=== PATIENT | female | born 1930 ===

== ENCOUNTER 2016-07-29 13:22 | Inpatient (IN) | payer MEDICARE, MEDICAID ==
[~2016-07-29] VITALS: Ht 157.5 cm; Wt 67.0 kg
[2016-07-29 14:15] LABS: BASOPHILS 0.5 % (0-2); EOSINOPHILS 4.4 % (0-7); HEMATOCRIT 30.6 % (36.0-48.0); IMMATURE GRANULOCYTES 0.9 % (0-5); LYMPHOCYTES 23.5 % (15-50); MCH 30.7 pg (26.0-34.0); MCHC 32.7 g/dL (31.0-37.0); MCV 93.9 fL (80.0-100.0); MEAN PLATELET VOLUME 9.6 fL (7.4-10.4); MONOCYTES 7.8 % (2-11); NEUTROPHILS 62.9 % (40-80); PLATELET COUNT 266 10x3/uL (130-400); RBC 3.26 10x6/uL (4.00-5.40); RDW 15.1 % (11.5-14.5); WBC 12.6 10x3/uL (4.8-10.8)
[2016-07-29 14:28] LABS: ALKALINE PHOSPHATASE 88 U/L (46-116); ALT (SGPT) 28 U/L (10-68); BILIRUBIN - TOTAL 0.27 mg/dL (0.2-1.3); CALC OSMOLALITY 292 mosm/kg (275-300); CALCIUM 8.9 mg/dL (8.5-10.1); CARBON DIOXIDE 15.6 mmol/L (21.0-32.0); CHLORIDE - SERUM 102 mmol/L (98-107); CREATININE - SERUM 2.5 mg/dL (0.6-1.3); GLUCOSE 138 mg/dL (74-106); POTASSIUM - SERUM 4.6 mmol/L (3.5-5.1); PROTEIN - SERUM 7.4 g/dL (6.4-8.2); SODIUM 132 mmol/L (136-145); UREA NITROGEN 84 mg/dL (7-18); eGFR NON AFRICAN AMERICAN 19 mL/min (90-120)
[2016-07-29 14:44] LABS: CHOL - HDL RATIO 4.3 ratio (2.3-4.1); CHOLESTEROL, TOTAL 200 mg/dL (0-200); CKMB 3.4 U/L (0.0-3.6); CREATINE KINASE 49 UL (21-215); HDL CHOLESTEROL 47 mg/dL (32-96); LDL CHOLESTEROL 78 mg/dL (0-100); LDL-HDL RATIO 1.7 ratio (1.5-3.5); TRIGLYCERIDE 378 mg/dL (30-200)
[2016-07-29 14:49] LABS: TROPONIN-I 0.925 ng/mL (0.000-0.060)
--- NOTE | 2016-07-29 17:00 | NUR ---
RECEIVED PT TO ROOM 2115 VIA GURNEY FROM ER AAOX4 RESP UNLABORED O2 ON 2LPM NC TELEMETRY APPLIED SR RATE 87 NS PATENT TO RAC PER PUMP AT 100ML/HR WITHOUT DIFFICULTY
[2016-07-29] MEDS ORDERED: CATAPRES TTS-10.1 MG TD (18:10)
[2016-07-29] MEDS ORDERED: ISOSORBIDE MONO30 M1 PO (18:10)
[2016-07-29] MEDS ORDERED: BUPROPION XL300 MG PO (18:11)
[2016-07-29] MEDS ORDERED: NORVASC10 MG PO (18:13)
[2016-07-29] MEDS ORDERED: MILK OF MAGNESI30 ML PO (18:14)
[2016-07-29] MEDS ORDERED: AMBIEN5 MG PO (18:14)
[2016-07-29] MEDS ORDERED: FUROSEMIDE20 MG PO (18:15)
[2016-07-29] MEDS ORDERED: METOPROLOL TAR100 M1 PO (18:17)
[2016-07-29] MEDS ORDERED: CATAPRES0.1 MG PO (18:18)
[2016-07-29] MEDS ORDERED: VITAMIN D250000 UNIT PO (18:19)
[2016-07-29] MEDS ORDERED: ATIVAN0.5 MG PO (18:22)
[2016-07-29] MEDS ORDERED: REQUIP0.5 MG PO (18:22)
[2016-07-29] MEDS ORDERED: DURAGESIC1 PATCH .7 TRANSDERM (18:24)
[2016-07-29] MEDS ORDERED: REMERON15 MG PO (18:26)
[2016-07-29] MEDS ORDERED: IPRAT-ALBUT 0.5-3 ML UPD (18:27)
[2016-07-29] MEDS ORDERED: MYSOLINE 50 MG50 MG PO (18:28)
[2016-07-29] MEDS ORDERED: PROTONIX40 MG PO (18:28)
[2016-07-29] MEDS ORDERED: VIGAMOX3 ML (18:29)
[2016-07-29 18:31] VITALS: BMI 25.3
[2016-07-29 20:20] VITALS: BP 188/82
[2016-07-30 00:09] VITALS: BP 189/93
[2016-07-30 04:15] VITALS: BP 140/69
[2016-07-30 05:12] LABS: BASOPHILS 0.7 % (0-2); EOSINOPHILS 3.4 % (0-7); HEMATOCRIT 28.4 % (36.0-48.0); HEMOGLOBIN 9.5 g/dL (12-16); IMMATURE GRANULOCYTES 0.5 % (0-5); LYMPHOCYTES 30.6 % (15-50); MCHC 33.5 g/dL (31.0-37.0); MCV 92.8 fL (80.0-100.0); MEAN PLATELET VOLUME 9.5 fL (7.4-10.4); MONOCYTES 5.6 % (2-11); NEUTROPHILS 59.2 % (40-80); PLATELET COUNT 270 10x3/uL (130-400); RBC 3.06 10x6/uL (4.00-5.40); RDW 14.9 % (11.5-14.5); WBC 13.1 10x3/uL (4.8-10.8)
[2016-07-30 05:22] LABS: ANION GAP 16.3 mmol/L (8-16); CALCIUM 9.2 mg/dL (8.5-10.1); CARBON DIOXIDE 18.4 mmol/L (21.0-32.0); CREATININE - SERUM 2.5 mg/dL (0.6-1.3); POTASSIUM - SERUM 4.7 mmol/L (3.5-5.1)
[2016-07-30 07:23] VITALS: BP 158/69
--- NOTE | 2016-07-30 07:30 | NUR ---
RESTING QUIETLY EYES CLOSED RESP UNLABORED NAD NOTED
--- NOTE | 2016-07-30 08:15 | NUR ---
PT TO OPERATIONS MANAGEMENT TRAINEE VIA BED NAD NOTED
[2016-07-30 12:09] VITALS: BP 117/59
[2016-07-30 16:10] VITALS: BP 143/66
[2016-07-30 20:00] VITALS: BP 126/54
[2016-07-31] VITALS: BP 120/53
[2016-07-31 04:00] VITALS: BP 163/68
[2016-07-31 05:37] LABS: BASOPHILS 0.7 % (0-2); EOSINOPHILS 4.2 % (0-7); HEMATOCRIT 25.2 % (36.0-48.0); IMMATURE GRANULOCYTES 0.6 % (0-5); LYMPHOCYTES 38.1 % (15-50); MCH 30.2 pg (26.0-34.0); MCHC 31.7 g/dL (31.0-37.0); MEAN PLATELET VOLUME 9.4 fL (7.4-10.4); MONOCYTES 6.9 % (2-11); NEUTROPHILS 49.5 % (40-80); PLATELET COUNT 220 10x3/uL (130-400); RBC 2.65 10x6/uL (4.00-5.40); RDW 15.5 % (11.5-14.5); WBC 10.2 10x3/uL (4.8-10.8)
[2016-07-31 05:38] LABS: MCV 95.1 fL (80.0-100.0)
[2016-07-31 06:06] LABS: ANION GAP 18.9 mmol/L (8-16); CALCIUM 8.5 mg/dL (8.5-10.1); CREATININE - SERUM 2.6 mg/dL (0.6-1.3); POTASSIUM - SERUM 4.9 mmol/L (3.5-5.1)
[2016-07-31 08:29] VITALS: BP 138/90
--- NOTE | 2016-07-31 09:29 | NUR ---
GAL[facility]GOS CATH INSERTED FOR ACURATE I&O. URINE SPECIMEN COLLECTED AND TAKEN TO LAB FOR UA C&S. WILL MONITOR.
[2016-07-31 10:07] LABS: APPEARANCE CLOUDY (CLEAR); BILIRUBIN NEGATIVE (NEGATIVE); COLOR YELLOW (YELLOW); GLUCOSE NEGATIVE (NEGATIVE); KETONE NEGATIVE (NEGATIVE); LEUKOCYTE ESTERASE 2+ (NEGATIVE); NITRITE NEGATIVE (NEGATIVE); PROTEIN 2+ mg/dL (NEGATIVE); UROBILINOGEN NORMAL (NORMAL)
[2016-07-31 10:08] LABS: BACTERIA MANY /hpf (NONE SEEN); EPITHELIAL CELLS 0-5 /hpf (0-5); WHITE CELLS - URINE 25-50 /hpf (0-5); YEAST >1+ WITH HYPHAE /hpf (NONE SEEN)
--- NOTE | 2016-07-31 11:22 | NUR ---
IV ACCESS-22 GAUGE INSERTED IN LEFT FOREARM FOR ACCESS. RACHELLE CASTILLO RN
[2016-07-31 11:40] VITALS: Ht 157.5 cm; Wt 67.0 kg
[2016-07-31 12:05] VITALS: BP 107/49
[2016-07-31 15:47] LABS: % SATURATION 31 % (15-55); IRON 85 ug/dl (35-150); TOTAL IRON BIND CAPACITY 266 ug/dl (260-445); UNSAT IRON BIND CAPACITY 181 ug/dl (150-375)
[2016-07-31 16:00] VITALS: BP 96/51
[2016-07-31 21:27] VITALS: BP 121/85
[2016-08-01 01:46] VITALS: BP 120/58
[2016-08-01 06:24] VITALS: BP 134/57
[2016-08-01 07:39] LABS: BASOPHILS 0.3 % (0-2); EOSINOPHILS 3.6 % (0-7); HEMATOCRIT 25.7 % (36.0-48.0); HEMOGLOBIN 8.4 g/dL (12-16); IMMATURE GRANULOCYTES 0.4 % (0-5); LYMPHOCYTES 28.7 % (15-50); MCH 30.9 pg (26.0-34.0); MCHC 32.7 g/dL (31.0-37.0); MCV 94.5 fL (80.0-100.0); MEAN PLATELET VOLUME 9.5 fL (7.4-10.4); MONOCYTES 7.1 % (2-11); NEUTROPHILS 59.9 % (40-80); PLATELET COUNT 217 10x3/uL (130-400); RBC 2.72 10x6/uL (4.00-5.40); RDW 15.6 % (11.5-14.5); WBC 10.5 10x3/uL (4.8-10.8)
[2016-08-01 07:55] LABS: CALCIUM 8.4 mg/dL (8.5-10.1); CARBON DIOXIDE 17.5 mmol/L (21.0-32.0); CREATININE - SERUM 2.5 mg/dL (0.6-1.3); POTASSIUM - SERUM 4.5 mmol/L (3.5-5.1)
[2016-08-01 08:00] VITALS: BP 131/62
[2016-08-01 11:59] VITALS: BP 100/52
[2016-08-01 15:53] VITALS: BP 112/55
--- NOTE | 2016-08-01 18:08 | EC ---
PATIENT:AMBER PICKENS DATE OF SERVICE: 07/29/16 SEX: F MEDICAL RECORD: [id number] DATE OF : 32 LOCATION:D.M2 D.211 AGE OF PATIENT: 85 ADMISSION DATE: 07/29/16 REFERRING PHYSICIAN: INTERPRETING PHYSICIAN: MADONNA LEDBETTER MD ECHOCARDIOGRAM REPORT ECHO CHARGES 4 ECHO COMPLETE CLINICAL DIAGNOSIS: WI ECHOCARDIOGRAPHIC MEASUREMENTS (adult normal given) AC root (d.<3.7cm) 2.6 LV Septum d (<1.2 cm> 1.3 Valve Excursion 1.5 LV Septum (systole) 1.9 Left Atria (s.<4.0cm> 3.4 LVPW d(<1.2cm) 0.9 RV (d.<2.3cm) 2.2 LVPW (sytole) 1.6 LV diastole(<5.6CM) 5.4 MV E-F(>70mm/sec) LV systole 3.2 LVOT Diameter 1.6 MV exc.(>10mm) Est.ejection fraction (50-75%) Pericardial Effusion N DOPPLER: LVIT A 103 E 124 LA RVSP 43.0 LVOT 129 AOP1/2T Asc. Ao 183 RVOT 93.0 RA PA 126 AV Gradient Peak 13.3 AV Mean 5.8 AV Area 1.8 MV Gradient Peak 7.7 MV Mean 3.4 MV Area COMMENTS: Food General Manager: Samm ZEPEDAOE Chainstitch Sewing Machine Operator:Samm Ledbetter TAPE# PACS DATE OF SERVICE: 07/31/2016 Echocardiogram FINDINGS: 1. Left ventricular chamber size is within normal limits. Left ventricular systolic function is normal. Overall ejection fraction estimated at 55%. 2. Left atrium, right atrium, and right ventricle chamber sizes are within normal limits. 3. Valvular structures have normal structure and motion. ECHOCARDIOGRAM REPORT [id number] AMBER PICKENS 4. Doppler interrogation reveals moderate mitral regurgitation, moderate tricuspid regurgitation, no other valvular insufficiency or stenosis. Pulmonary artery systolic pressure is estimated at 43 mmHg. 5. No evidence of pericardial effusion or left ventricular thrombus. TRANSINT:[id number] Voice Confirmation ID: [id number] DOCUMENT ID: [id number] MADONNA LEDBETTER MD at 180 CC: [id number] DICTATION DATE: 07/31/16 1619 REBAR BENDER: 08/01/16 1017 ADM IN [facility] [address] [place] [address]
--- NOTE | 2016-08-01 18:08 | CN ---
PATIENT NAME:AMBER PICKENS MEDICAL RECORD: [id number] : [birth year] LOCATION:D. D.2116 ADMIT DATE: 07/29/16 ACCOUNT: [id number] CONSULTING PHYSICIAN: MADONNA LANE MD REFERRING PHYSICIAN: JR INMAN MD DATE OF CONSULTATION: 07/30/2016 DIAGNOSES: 1. Non-Q-wave myocardial infarction. 2. Coronary artery disease. 3. Hypertension. 4. Hyperlipidemia. 5. Congestive heart failure, pulmonary edema. 6. Dementia. HISTORY OF PRESENT ILLNESS: Mrs. Pickens is a alf patient that was sent here due to chest pain. It seems like she had a similar episode in April, went to [facility]. She did have an elevated troponin compatible with a non-Q-wave myocardial infarction. She was treated medically. She is on optimal medical therapy with beta-nivia, calcium channel nivia, nitrates, aspirin and Plavix. She as well had pulmonary edema on her chest x-ray yesterday and she is on dobutamine drip, do not know her previous or current ejection fraction. She is on Imdur as well as low dose nitropatch, which would make this relatively ineffective. She has continued to have the episodes of chest discomfort since her episode in April. Her EKG, however, has no acute ST-T abnormalities. PHYSICAL EXAMINATION: GENERAL APPEARANCE: Well-nourished, well-developed, appears stated age. Level of distress, comfortable. PSYCHIATRIC: Mental status, alert, normal affect. Orientation, oriented to time, place and person. EYES: Lids and conjunctiva, noninjected. No discharge, no pallor. ENT: Lips, teeth, gums, normal dentition. Oropharynx, no cyanosis, no pallor. NECK: Carotid arteries, bilateral normal upstroke, no bruits, no thrills. JUGULAR VEINS: No jugular venous pressure or distention. CERVICAL LYMPH NODES: Nontender, nonenlarged. THYROID: Not enlarged. Nontender. No nodules. LUNGS: Respiratory effort, unlabored. CHEST: Normal curvature. No thoracic deformity. No chest wall tenderness. Percussion, resonant. Auscultation, clear. No wheezes, no rales, no rhonchi. CARDIOVASCULAR: Precordial exam, nondisplaced. No heaves or pericardial thrills. Rate and rhythm, regular. Heart sounds, normal S1, normal S2. No S3, no gallop, no rub. Systolic murmur, not heard. Diastolic murmur, not heard. EXTREMITIES: No cyanosis, no edema. Peripheral pulses, full and equal in all extremities, except as noted. No bruits appreciated. ABDOMEN: Soft, nondistended. Normal aorta. No bruit. Nontender. No masses. Liver, nontender, no hepatomegaly. Spleen, nontender, no splenomegaly. MUSCULOSKELETAL: No joint tenderness. No joint swelling. No erythema. NEUROLOGICAL: Normal gait, normal strength, normal tone. SKIN: Warm and dry. REVIEW OF SYSTEMS: The patient reports easy bruising but reports no swollen glands. The patient reports no fever, no night sweats, no significant weight gain, no significant weight loss. No significant exercise tolerance. The CONSULT REPORT [id number] AMBER PICKENS patient reports no dry eyes, no irritation, no vision change. Patient reports no difficulty hearing and no ear pain. Patient reports no frequent nose bleeds or nose and sinus problems. Patient reports on arm pain on exertion. No shortness of breath while lying down. No history of heart murmur. Patient reports no cough, no wheezing or coughing up blood. Patient reports no abdominal pain, no vomiting. Normal appetite. No diarrhea and not vomiting blood. No nausea and no constipation. Patient reports no incontinence. No difficulty urinating. No hematuria. No increased frequency. Patient reports no muscle aches. No weakness, no arthralgias, no back pain. No swelling of the extremities. Patient reports no abnormal mole, no jaundice, no rashes. Reports no loss of consciousness. No weakness and no numbness. No seizures, dizziness, or headaches. The patient reports no depression, no sleep disturbance, feeling safe in a relationship and no alcohol abuse. Patient reports on fatigue. Reports no runny nose or sinus pressure. No itching, no hives, and no frequent sneezing. OVERALL IMPRESSION: Multiple other medical problems including advanced age, significant dementia and inability to ambulate. This should be only medical management. We will discontinue the low dose nitropatch and the low dose Imdur. Put her on a high dose nitropatch. Continue her medications. We will discontinue the dobutamine in the near future when she clears the pulmonary edema, most likely 1 more dose of Lasix will clear the pulmonary edema. No other cardiac workup is necessary at this time, but we will get an echocardiogram for accurate ejection fraction at this time. TRANSINT:[id number] Voice Confirmation ID: [id number] DOCUMENT ID: [id number] MADONNA LANE MD at 1808 CC: [id number] DICTATION DATE: 07/30/16825 CERTIFIED OPHTHALMIC TECHNICIAN: 07/30/16 1718 ADM IN [place] [id number] [place] [address]
[2016-08-01 21:07] VITALS: BP 145/69
[2016-08-02 01:38] VITALS: BP 145/62
[2016-08-02 05:32] VITALS: BP 158/68
[2016-08-02 08:00] VITALS: BP 155/64
--- NOTE | 2016-08-02 09:21 | NUR ---
Patient Name: AMBER PICKENS Admission Status: ER Accout number: [id number] Admission Date: 07-29-2016 : 1930 Admission Diagnosis: Attending: RIVERA Current LOS: 4 Anticipated DC Date: 08-04-2016 Planned Disposition: Group Home Facility Primary Insurance: MEDICARE A & B Discharge Planning Comments: CM met with patient to assess discharge planning/ needs. Patient states [facility]. I called to verify with Trudi at [facility] that she was a resident and she was in a Medicaid Snf Care Bed. Patient states that her plan is to return to long-term. She states that she uses O2 at night and that the facility helps her with her bathing, medications, and toileting. She is happy where she is at. She does have a son (Felipe) [phone]. CM will continue to follow and assist as needed with discharge planning/needs. PCP: Reilly @ [facility] Braulio Wang ([phone]) Car Rental Sales Assistant: Joselyn Peck * Is the patient Alert and Oriented? Yes 0 * How many steps to enter\exit or inside your home? 0 0 * PCP Reilly 0 * Preadmission Environment Potato Chip Packaging Machine Operator Fdc 0 * Facility Name [facility] 0 * ADLs Partial Dependent 0 * Partial ADLs (Assistance needed) Bathing Medication Management Toileting Transfers 0 * Equipment Oxygen 0 * List name and contact numbers for known caregivers / representatives who currently or will assist patient after discharge: Felipe Pickens (son) [phone] 0 * Additional services required to return to the preadmission environment? No 0 * Can the patient safely return to the preadmission environment? Yes 0 * Has this patient been hospitalized within the prior 30 days at any hospital? No 0 Grand Total: 0
[2016-08-02 12:00] VITALS: BP 154/69
[2016-08-02 14:10] LABS: ANION GAP 15.7 mmol/L (8-16); CALCIUM 8.2 mg/dL (8.5-10.1)
[2016-08-02 14:14] LABS: CARBON DIOXIDE 25.3 mmol/L (21.0-32.0)
[2016-08-02 15:59] VITALS: BP 110/68
[2016-08-02 20:44] VITALS: BP 150/78
--- NOTE | 2016-08-03 00:14 | NUR ---
PT RESTING WELL, NO CHANGES NOTED IN ASSESSMENT. NO NEEDS VOICED. CALL LIGHT WITHIN REACH. WILL CONT TO MONITOR.
[2016-08-03 03:47] VITALS: BP 153/77
[2016-08-03 08:41] VITALS: BP 183/89
[2016-08-03 12:54] VITALS: BP 135/80
[2016-08-03] MEDS ORDERED: DIFLUCAN PREMI100 MG PO (15:22)
[2016-08-03] MEDS ORDERED: PLAVIX75 MG PO (15:22)
[2016-08-03] MEDS ORDERED: FLORAJEN3 CAPS460 MG PO (15:22)
[2016-08-03] MEDS ORDERED: NITRO-DUR0.6 MG TRANSDERM (15:22)
[2016-08-03] MEDS ORDERED: ASPIRIN325 MG PO (15:22)
--- NOTE | 2016-08-03 15:58 | NUR ---
Patient Name: AMBER PICKENS Encounter No: [id number] : 1930 Primary Insurance: MEDICARE A & B Anticipated DC Date: 08-03-2016 Planned Disposition: Senior Care Facility External Planned Provider: [facility], [facility] MED[employer] BED DCP follow-up note: CM RECEIVED DISCHARGE ORDER, MET WITH PT IN ROOM WHO REPORTS AGREEMENT WITH DISCHARGE BACK TO [facility] TODAY. PT REPORTS HER SPOUSE LIVES THERE AND IS AWARE THAT SHE IS RETURNING TODAY. PT REPORTS ABILITY TO SIT IN WHEELCHAIR FOR TRANSPORT BACK, CAN TRANSFER WITH ASSISTANCE. CM PROVIDED AND EXPLAINED IMPORTANT MESSAGE FROM MEDICARE. CM CALLED [facility], , SPOKE TO MARLI WHO REPORTS THEY WILL ACCEPT PT BACK TODAY AND WILL SEND EMILIA IN [place] TO PSYCH ASSISTANT PT IN ABOUT 30 MINUTES. BORING INSPECTOR NURSE NOTIFIED. PT NOTIFIED, BEDSIDE NURSE NOTIFIED. CM FAXED DISCHARGE INFORMATION TO [facility], . NURSE REPORT TO BE CALLED TO MELISSA AT [facility], . [facility] TO PSYCH ASSISTANT PT TODAY AT ABOUT 4:20 PM TODAY. Sergo Woody, CASE MANAGEMENT
[2016-08-03] MEDS ORDERED: DIFLUCAN100 MG PO ×2 (15:59→16:03)
[2016-08-03 16:20] VITALS: BP 140/74
--- NOTE | 2016-08-03 16:22 | NUR ---
IV AND TLEMETRY DCD. DC PLANS GIVEN. UNDERSTANDING VOICED. ESCORTED TO [facility] BY W/C.
== END 2016-08-03 16:29 | DRG 281 ==
LOC: D.ER 13:22 → D.M2 15:41
PROVIDERS: Emergency Medicine; ADMIT Family Medicine
PROC: 0T9B70Z Drainage of Bladder with Drainage Device, Via Natural or Artificial Opening (ICD-10-PCS; principal; 2016-07-29)
DX: I21.4 Non-ST elevation (NSTEMI) myocardial infarction (principal); I13.0 Hypertensive heart and chronic kidney disease with heart failure and stage 1 through stage 4 chronic kidney disease, or unspecified chronic kidney disease; N17.9 Acute kidney failure, unspecified; G91.2 (Idiopathic) normal pressure hydrocephalus; B37.49 Other urogenital candidiasis; I50.32 Chronic diastolic (congestive) heart failure; N18.3 Chronic kidney disease, stage 3 (moderate); E78.5 Hyperlipidemia, unspecified; I25.10 Atherosclerotic heart disease of native coronary artery without angina pectoris; K21.9 Gastro-esophageal reflux disease without esophagitis; G25.81 Restless legs syndrome; D64.9 Anemia, unspecified; N35.9 Urethral stricture, unspecified; E55.9 Vitamin D deficiency, unspecified; G89.4 Chronic pain syndrome; F41.9 Anxiety disorder, unspecified; F32.9 Major depressive disorder, single episode, unspecified; F03.90 Unspecified dementia, unspecified severity, without behavioral disturbance, psychotic disturbance, mood disturbance, and anxiety